=== PATIENT | female | born 1950 | race Caucasian/White ===

== ENCOUNTER 2017-10-07 10:12 | Inpatient (IN) | payer OTHER ==
[~2017-10-07] VITALS: Ht 167.6 cm; Wt 80.5 kg
[2017-10-07] MEDS ORDERED: NALBUPHINE HCL 10 MG/1ml INJECTION IV ONE ×3 (10:45→18:00)
[2017-10-07] MEDS ORDERED: PROMETHAZINE HCL 25 MG/ML 1ML IV ONE ×3 (10:45→18:00)
[2017-10-07 11:26] LABS: Basophils # (auto) 0.1 uL; Basophils % (auto) 0.5 % (0.0-2.0); Eosinophils # (auto) 0.2 uL; Eosinophils % (auto) 1.3 % (0.0-7.0); Hematocrit 40.4 % (36.0-46.0); Hemoglobin 13.2 g/dL (12.2-16.2); Lymphocytes # (auto) 2.3 uL; Lymphocytes % (auto) 18.6 % (10.0-50.0); Mean Corpuscular Hgb Conc. 32.7 g/dL (32.0-36.0); Mean Corpuscular Volume 91.7 fL (80.0-100.0); Monocytes # (auto) 0.6 uL; Monocytes % (auto) 5.3 % (0.0-12.0); Neutrophils # (auto) 9.1 uL; Neutrophils % (auto) 74.3 % (37.0-80.0); Platelet Count (auto) 226 10^3/uL (140-450); Red Cell Distribution Width 15.1 % (11.8-14.3); White Blood Cell 12.2 10^3/uL (4.4-10.8)
[2017-10-07 11:30] LABS: Alanine Aminotransferase 29 U/L (13-56); Albumin 3.7 g/dL (3.4-5.0); Alkaline Phosphatase 78 U/L (45-117); Anion Gap 11 (5-15); Aspartate Aminotransferase 22 U/L (15-37); BUN/Creatinine Ratio 30.9; Bilirubin, Total 0.4 mg/dL (0.2-1.0); Blood Urea Nitrogen 17 mg/dL (7-18); Calcium 9.6 mg/dL (8.5-10.1); Carbon Dioxide 21 mmol/L (21-32); Chloride 106 mmol/L (98-107); GFR African American 142 mL/min; GFR Non-African American 118 mL/min; Glucose 102 mg/dL (74-106); Sodium 138 mmol/L (136-145); Total Protein 8.5 g/dL (6.4-8.2)
[2017-10-07] MEDS ORDERED: NITROGLYCERIN 0.4 MG SL TAB SL PRN (19:15)
[2017-10-07] MEDS ORDERED: MORPHINE SULFATE 4 MG/ML SYR/VIAL IV PRN (19:15)
[2017-10-07] MEDS ORDERED: ONDANSETRON HCL 4 MG/2 ML VIAL IV PRN (19:15)
[2017-10-07 19:36] LABS: Urine Bacteria NONE SEEN /hpf (None Seen); Urine Blood TRACE /uL (Negative); Urine Specific Gravity 1.013 (1.001-1.035); Urine WBC 1 /hpf (0 - 5)
[2017-10-07] MEDS: MORPHINE SULF INJ 2 MG/ML SYRINGE 1ML IV PRN (21:00)
[2017-10-07 21:15] VITALS: BP 103/59
[2017-10-08] MEDS ORDERED: ATEN-60 PO (00:31)
[2017-10-08] MEDS ORDERED: NIFE20CA PO (00:31)
[2017-10-08] MEDS ORDERED: IBUP800T24 PO (00:31)
[2017-10-08] MEDS ORDERED: ALPR0.5T PO (00:31)
[2017-10-08] MEDS ORDERED: ASPI-231 PO (00:31)
[2017-10-08] MEDS: MORPHINE SULF INJ 2 MG/ML SYRINGE 1ML IV PRN ×2 (01:02→05:58)
[2017-10-08] MEDS ORDERED: MORPHINE SULFATE 4 MG/ML SYR/VIAL ONE ×2 (01:07→05:37)
[2017-10-08 05:00] VITALS: BP 133/65
[2017-10-08 06:27] LABS: Basophils # (auto) 0 uL; Basophils % (auto) 0.4 % (0.0-2.0); Eosinophils # (auto) 0.1 uL; Eosinophils % (auto) 0.8 % (0.0-7.0); Hematocrit 33.9 % (36.0-46.0); Hemoglobin 11.3 g/dL (12.2-16.2); Lymphocytes # (auto) 2.1 uL; Lymphocytes % (auto) 17.5 % (10.0-50.0); Mean Corpuscular Hemoglobin 30.6 pg (28.0-32.0); Mean Corpuscular Hgb Conc. 33.3 g/dL (32.0-36.0); Monocytes # (auto) 0.9 uL; Monocytes % (auto) 7.1 % (0.0-12.0); Neutrophils % (auto) 74.2 % (37.0-80.0); Platelet Count (auto) 183 10^3/uL (140-450); Red Blood Cells 3.69 10^6/uL (4.0-5.20); Red Cell Distribution Width 14.9 % (11.8-14.3); White Blood Cell 12.2 10^3/uL (4.4-10.8)
[2017-10-08 06:33] LABS: INR 0.94 (0.9-1.15); Prothrombin Time 10.2 sec (9.37-12.3)
[2017-10-08 06:45] LABS: Potassium 4.1 mmol/L (3.5-5.1)
[2017-10-08] MEDS ORDERED: MORPHINE SULFATE 4 MG/ML SYR/VIAL IV PRN (06:45)
[2017-10-08 06:50] LABS: BUN/Creatinine Ratio 29.2; Calcium 10.1 mg/dL (8.5-10.1)
[2017-10-08 06:52] LABS: Bilirubin, Total 0.5 mg/dL (0.2-1.0); Total Protein 6.8 g/dL (6.4-8.2)
[2017-10-08 09:00] VITALS: BP 118/62
[2017-10-08] MEDS ORDERED: HYDROcodone-ACET 5/325MG TAB PO PRN (09:00)
[2017-10-08] MEDS ORDERED: HYDROcodone-ACET 10/325MG TAB PO ONE (09:45)
[2017-10-08 12:00] VITALS: BP 97/57
[2017-10-08] MEDS ORDERED: NIFEdipine ER 30 MG TAB PO ONE (13:30)
[2017-10-08] MEDS ORDERED: ASPirin 81 mg TAB PO SCH (13:30)
[2017-10-08 15:00] VITALS: BP 125/73
[2017-10-08] MEDS: HYDROcodone-ACET 10/325MG TAB PO PRN ×3 (15:12→23:21)
[2017-10-08 21:19] VITALS: BP 131/72
[2017-10-08 22:49] VITALS: BP 131/72
[2017-10-09] MEDS ORDERED: NIFEdipine ER 30 MG TAB PO SCH (10:00)
== END 2017-10-08 23:58 | DRG 563 ==
LOC: EDBD 10:12 → ER 10:12 → OVERFLOW 10:13 → EAST 21:15
PROVIDERS: ADMIT Internal Medicine; ATTEND Internal Medicine
DX: S42.215A Unspecified nondisplaced fracture of surgical neck of left humerus, initial encounter for closed fracture (principal); S32.512A Fracture of superior rim of left pubis, initial encounter for closed fracture; S32.592A Other specified fracture of left pubis, initial encounter for closed fracture; W01.0XXA Fall on same level from slipping, tripping and stumbling without subsequent striking against object, initial encounter; G47.00 Insomnia, unspecified; I10 Essential (primary) hypertension; Y93.89 Activity, other specified; Y92.22 Religious institution as the place of occurrence of the external cause; Z80.0 Family history of malignant neoplasm of digestive organs; Z80.1 Family history of malignant neoplasm of trachea, bronchus and lung; Z82.3 Family history of stroke; Z82.49 Family history of ischemic heart disease and other diseases of the circulatory system; Z90.710 Acquired absence of both cervix and uterus; Z88.1 Allergy status to other antibiotic agents; Z88.8 Allergy status to other drugs, medicaments and biological substances; Z88.0 Allergy status to penicillin
CPT/HCPCS: 36415; 51702; 71045; 73060; 73502; 73700; 80053; 81001; 84484; 85025; 85610; 93005; 96374; 96375; 96376; 97163; J2405

== ENCOUNTER 2017-10-11 16:21 | Inpatient (IN) | payer OTHER ==
[~2017-10-11] VITALS: Ht 165.1 cm; Wt 84.5 kg
[~2017-10-11 16:21] MED LIST: ALPR0.5T PO; ASPI-231 PO; ATEN-60 PO; IBUP800T24 PO; NIFE20CA PO
[2017-10-11] MEDS ORDERED: SODIUM CHLORIDE 0.9% 500 ML IVB ONE (16:36)
[2017-10-11] MEDS ORDERED: ONDANSETRON HCL 4 MG/2 ML VIAL IV ONE (16:45)
[2017-10-11 17:21] LABS: Basophils # (auto) 0 uL; Basophils % (auto) 0.1 % (0.0-2.0); Eosinophils # (auto) 0 uL; Eosinophils % (auto) 0.1 % (0.0-7.0); Hemoglobin 12.6 g/dL (12.2-16.2); Lymphocytes # (auto) 1.4 uL; Lymphocytes % (auto) 6.1 % (10.0-50.0); Mean Corpuscular Hemoglobin 31.1 pg (28.0-32.0); Mean Corpuscular Hgb Conc. 34.1 g/dL (32.0-36.0); Mean Corpuscular Volume 91.1 fL (80.0-100.0); Monocytes # (auto) 1.5 uL; Monocytes % (auto) 6.8 % (0.0-12.0); Neutrophils # (auto) 19.4 uL; Neutrophils % (auto) 86.9 % (37.0-80.0); Nucleated Red Blood Cells % 0.1 %; Platelet Count (auto) 177 10^3/uL (140-450); Red Blood Cells 4.06 10^6/uL (4.0-5.20); Red Cell Distribution Width 14.2 % (11.8-14.3); White Blood Cell 22.3 10^3/uL (4.4-10.8)
[2017-10-11 19:02] LABS: Urine Bacteria FEW /hpf (None Seen); Urine Blood 1+ /uL (Negative); Urine Specific Gravity 1.011 (1.001-1.035); Urine WBC 97 /hpf (0 - 5)
[2017-10-11 19:12] LABS: Potassium 3.2 mmol/L (3.5-5.1)
[2017-10-11 19:15] LABS: Calcium 18.7 mg/dL (8.5-10.1)
[2017-10-11 19:16] LABS: Albumin 2.7 g/dL (3.4-5.0); Bilirubin, Total 0.9 mg/dL (0.2-1.0); Magnesium 2.5 mg/dL (1.6-2.6); Total Protein 7.2 g/dL (6.4-8.2)
[2017-10-11] MEDS ORDERED: POTASSIUM CHL 20MEQ/100ML 100 ML IV ONE (19:45)
[2017-10-11] MEDS ORDERED: MORPHINE SULFATE 4 MG/ML SYR/VIAL IV PRN (21:00)
[2017-10-11] MEDS ORDERED: D5W/SOD CHL 0.45% 1,000 ML IV ONE (21:00)
[2017-10-11] MEDS ORDERED: ONDANSETRON HCL 4 MG/2 ML VIAL IV PRN (21:00)
[2017-10-11] MEDS ORDERED: NITROGLYCERIN 0.4 MG SL TAB SL PRN (21:00)
[2017-10-11] MEDS ORDERED: CHOL20009 PO (21:09)
[2017-10-11] MEDS ORDERED: CALC667C5 PO (21:09)
[2017-10-11] MEDS ORDERED: HEPARIN DRIP/D5W 100UNITS/ML 250 ML IV SCH (21:13)
[2017-10-11] MEDS ORDERED: HEPARIN SODIUM (PORCINE) 5000 UNITS/ML 1ML VIAL IV ONE (21:15)
[2017-10-11] MEDS: ALPRAZolam 0.5 MG TAB PO SCH (22:00)
[2017-10-11] MEDS ORDERED: HEPARIN SODIUM (PORCINE) 5000 UNITS/ML 1ML VIAL SC SCH (22:00)
[2017-10-11] MEDS: ATORVASTATIN 20 MG TAB PO SCH (22:00)
[2017-10-11] MEDS: METOPROLOL TARTRATE 25 MG TAB PO SCH (22:00)
[2017-10-11] MEDS: DOCUSATE SOD 100 MG CAP PO SCH (22:00)
[2017-10-11 22:03] LABS: Potassium 3.3 mmol/L (3.5-5.1)
[2017-10-11 22:11] LABS: Calcium 19.7 mg/dL (8.5-10.1)
[2017-10-11] MEDS: POTASSIUM CHL 20MEQ/100ML 100 ML IV SCH ×2 (22:30→23:00)
[2017-10-11] MEDS: SODIUM CHLORIDE 0.9% 1,000 ML IV SCH (23:30)
[2017-10-11] MEDS ORDERED: CALCITONIN 200 UNIT/SPRAY NASAL ONE (23:30)
[2017-10-12] MEDS ORDERED: TEMAZEPAM 15 MG CAP PO ONE
[2017-10-12 01:06] LABS: BUN/Creatinine Ratio 41.4; Potassium 3.4 mmol/L (3.5-5.1)
[2017-10-12 01:10] LABS: Calcium 19.5 mg/dL (8.5-10.1)
[2017-10-12] MEDS ORDERED: HEPARIN SODIUM (PORCINE) 5000 UNITS/ML 1ML VIAL ONE ×2 (01:45→09:14)
[2017-10-12] MEDS: LINEZOLID 600MG/300ML 300 ML IV SCH ×3 (01:53→21:30)
[2017-10-12] MEDS: SODIUM CHLORIDE 0.9% 1,000 ML IV SCH ×5 (04:42→23:00)
[2017-10-12 05:36] VITALS: BP 127/58
[2017-10-12] MEDS ORDERED: FUROSEMIDE 20 MG/2 ML VIAL IV SCH (06:00)
[2017-10-12] MEDS ORDERED: HEPARIN SODIUM (PORCINE) 5000 UNITS/ML 1ML VIAL SC SCH (06:00)
[2017-10-12 07:16] LABS: Basophils # (auto) 0 uL; Basophils % (auto) 0.2 % (0.0-2.0); Eosinophils # (auto) 0 uL; Eosinophils % (auto) 0.1 % (0.0-7.0); Hematocrit 34.3 % (36.0-46.0); Hemoglobin 11.5 g/dL (12.2-16.2); Lymphocytes # (auto) 1.5 uL; Mean Corpuscular Hemoglobin 30.5 pg (28.0-32.0); Mean Corpuscular Hgb Conc. 33.5 g/dL (32.0-36.0); Monocytes # (auto) 1.4 uL; Monocytes % (auto) 6.6 % (0.0-12.0); Neutrophils # (auto) 17.8 uL; Neutrophils % (auto) 86.1 % (37.0-80.0); Platelet Count (auto) 158 10^3/uL (140-450); Red Blood Cells 3.77 10^6/uL (4.0-5.20); Red Cell Distribution Width 14.2 % (11.8-14.3); White Blood Cell 20.7 10^3/uL (4.4-10.8)
[2017-10-12 07:30] LABS: INR 0.92 (0.9-1.15)
[2017-10-12 07:48] LABS: BUN/Creatinine Ratio 44.5; Potassium 3.2 mmol/L (3.5-5.1)
[2017-10-12] MEDS ORDERED: ZOLEDRONIC ACID 4 MG in SODIUM CHL 0.9% 100 ML IV ONE (09:00)
[2017-10-12] MEDS: PANTOPRAZOLE 40 MG/10 ML VIAL IV SCH (09:21)
[2017-10-12] MEDS: DOCUSATE SOD 100 MG CAP PO SCH ×2 (09:21→22:00)
[2017-10-12] MEDS: ASPirin-EC 81 mg tab PO SCH (09:21)
[2017-10-12] MEDS: METOPROLOL TARTRATE 25 MG TAB PO SCH ×2 (09:22→22:00)
[2017-10-12] MEDS: CALCITONIN INJECTABLE (200U/ML) 2ML VIAL SC SCH ×2 (09:23→22:00)
[2017-10-12] MEDS: NIFEdipine ER 30 MG TAB PO SCH (09:23)
[2017-10-12] MEDS: ALPRAZolam 0.5 MG TAB PO SCH ×2 (09:23→22:00)
[2017-10-12] MEDS: HEPARIN SODIUM (PORCINE) 5000 UNITS/ML 1ML VIAL SC SCH ×2 (09:24→17:50)
[2017-10-12 12:00] VITALS: BP 140/68
[2017-10-12 12:23] LABS: BUN/Creatinine Ratio 38.8
[2017-10-12 12:33] LABS: Calcium 17.8 mg/dL (8.5-10.1)
[2017-10-12] MEDS: AZTREONAM 1GM INJ 1 GM in D5W 5% 50 ML IV SCH ×2 (13:48→22:00)
[2017-10-12 14:08] LABS: BUN/Creatinine Ratio 43.1; Potassium 3.1 mmol/L (3.5-5.1)
[2017-10-12 14:11] LABS: Calcium 17.6 mg/dL (8.5-10.1)
[2017-10-12 16:00] VITALS: BP 152/82
[2017-10-12 20:00] VITALS: BP 133/84
[2017-10-12] MEDS: ATORVASTATIN 20 MG TAB PO SCH (22:00)
[2017-10-13] VITALS: BP_SYST 124; BP_SYST 154; BP_DIAS 81; BP_DIAS 83
[2017-10-13] MEDS: MORPHINE SULFATE 4 MG/ML SYR/VIAL IV PRN
[2017-10-13 01:05] LABS: BUN/Creatinine Ratio 37.9
[2017-10-13 01:19] LABS: Calcium 17.8 mg/dL (8.5-10.1); Potassium 2.8 mmol/L (3.5-5.1)
[2017-10-13] MEDS ORDERED: POTASSIUM CHL 20MEQ/100ML 300 ML IV ONE (02:06)
[2017-10-13] MEDS: SODIUM CHLORIDE 0.9% 1,000 ML IV SCH ×4 (02:16→14:55)
[2017-10-13] MEDS: HEPARIN SODIUM (PORCINE) 5000 UNITS/ML 1ML VIAL SC SCH ×4 (02:19→22:33)
[2017-10-13] MEDS: POTASSIUM CHL 20MEQ/100ML 100 ML IV SCH ×3 (02:19→05:55)
[2017-10-13 04:00] VITALS: BP 114/66
[2017-10-13 05:44] LABS: Hematocrit 31.4 % (36.0-46.0); Hemoglobin 10.5 g/dL (12.2-16.2); Mean Corpuscular Hemoglobin 30.5 pg (28.0-32.0); Mean Corpuscular Hgb Conc. 33.4 g/dL (32.0-36.0); Mean Corpuscular Volume 91.4 fL (80.0-100.0); Platelet Count (auto) 132 10^3/uL (140-450); Red Blood Cells 3.43 10^6/uL (4.0-5.20); Red Cell Distribution Width 14.1 % (11.8-14.3); White Blood Cell 14.3 10^3/uL (4.4-10.8)
[2017-10-13 05:54] LABS: Basophils % (manual) 0 (0.0-2.0); Blast Cells 0; Eosinophils % (manual) 0 (0-7); Metamyelocytes % 0; Myelocytes % 0; Potassium 3.3 mmol/L (3.5-5.1); Promyelocytes % 0; Reactive Lymphocytes 0
[2017-10-13 06:02] LABS: Calcium 15.3 mg/dL (8.5-10.1)
[2017-10-13] MEDS: AZTREONAM 1GM INJ 1 GM in D5W 5% 50 ML IV SCH ×3 (06:21→22:38)
[2017-10-13 06:39] LABS: Band Neutrophils % (manual) 2; Lymphocytes % (manual) 3 (10.0-50.0); Monocytes % (manual) 3 (0-12)
[2017-10-13 08:00] VITALS: BP 143/68
[2017-10-13] MEDS: PANTOPRAZOLE 40 MG/10 ML VIAL IV SCH (10:41)
[2017-10-13] MEDS: LINEZOLID 600MG/300ML 300 ML IV SCH ×2 (10:42→21:23)
[2017-10-13] MEDS: ASPirin-EC 81 mg tab PO SCH (10:42)
[2017-10-13] MEDS: ALPRAZolam 0.5 MG TAB PO SCH ×2 (10:42→22:26)
[2017-10-13] MEDS: METOPROLOL TARTRATE 25 MG TAB PO SCH ×2 (10:42→22:28)
[2017-10-13] MEDS: DOCUSATE SOD 100 MG CAP PO SCH ×2 (10:42→22:26)
[2017-10-13] MEDS: NIFEdipine ER 30 MG TAB PO SCH (10:43)
[2017-10-13 12:26] LABS: BUN/Creatinine Ratio 41.7; Potassium 3.1 mmol/L (3.5-5.1)
[2017-10-13 12:33] LABS: Calcium 14.5 mg/dL (8.5-10.1)
[2017-10-13] MEDS: CALCITONIN INJECTABLE (200U/ML) 2ML VIAL SC SCH ×2 (12:46→22:33)
[2017-10-13 14:33] LABS: BUN/Creatinine Ratio 44.6
[2017-10-13] MEDS ORDERED: SODIUM CHLORIDE 0.9% 2,000 ML IV ONE (15:45)
[2017-10-13] MEDS ORDERED: FUROSEMIDE 100 MG/10ML VIAL IV ONE (15:45)
[2017-10-13] MEDS ORDERED: POTASSIUM CHLORIDE 60 MEQ, LIDOCAINE 1% (LOCAL ANESTH.) 6 ML in SODIUM CHL 0.9% 500 ML IV ONE (15:45)
[2017-10-13 16:00] VITALS: BP 154/92
[2017-10-13 20:00] VITALS: BP 147/71
[2017-10-13 22:00] VITALS: BP 128/74
[2017-10-13] MEDS: ATORVASTATIN 20 MG TAB PO SCH (22:26)
[2017-10-13 23:39] LABS: BUN/Creatinine Ratio 40.5; Potassium 3.1 mmol/L (3.5-5.1)
[2017-10-13 23:44] LABS: Calcium 13.6 mg/dL (8.5-10.1)
[2017-10-14] VITALS: BP 143/84
[2017-10-14 04:00] VITALS: BP 165/74
[2017-10-14] MEDS: SODIUM CHLORIDE 0.9% 1,000 ML IV SCH ×5 (05:00→21:30)
[2017-10-14 05:26] LABS: Hematocrit 30.4 % (36.0-46.0); Hemoglobin 10.2 g/dL (12.2-16.2); Mean Corpuscular Hemoglobin 30.6 pg (28.0-32.0); Mean Corpuscular Hgb Conc. 33.6 g/dL (32.0-36.0); Mean Corpuscular Volume 91.1 fL (80.0-100.0); Platelet Count (auto) 134 10^3/uL (140-450); Red Blood Cells 3.33 10^6/uL (4.0-5.20); Red Cell Distribution Width 14.2 % (11.8-14.3); White Blood Cell 14.6 10^3/uL (4.4-10.8)
[2017-10-14 05:33] LABS: Basophils % (manual) 0 (0.0-2.0); Blast Cells 0; Eosinophils % (manual) 0 (0-7); Metamyelocytes % 0; Myelocytes % 0; Promyelocytes % 0; Reactive Lymphocytes 0
[2017-10-14 05:45] LABS: BUN/Creatinine Ratio 43.3; Calcium 12.7 mg/dL (8.5-10.1)
[2017-10-14 05:49] LABS: Potassium 2.7 mmol/L (3.5-5.1)
[2017-10-14] MEDS: AZTREONAM 1GM INJ 1 GM in D5W 5% 50 ML IV SCH ×3 (05:53→22:43)
[2017-10-14] MEDS: HEPARIN SODIUM (PORCINE) 5000 UNITS/ML 1ML VIAL SC SCH ×3 (06:39→22:34)
[2017-10-14] MEDS ORDERED: POTASSIUM CHLORIDE 60 MEQ, LIDOCAINE 1% (LOCAL ANESTH.) 6 ML in SODIUM CHL 0.9% 500 ML IV ONE (07:00)
[2017-10-14 07:02] LABS: Band Neutrophils % (manual) 2; Lymphocytes % (manual) 2 (10.0-50.0); Monocytes % (manual) 1 (0-12)
[2017-10-14 08:00] VITALS: BP 163/76
[2017-10-14] MEDS: LINEZOLID 600MG/300ML 300 ML IV SCH ×2 (10:32→22:35)
[2017-10-14] MEDS: ASPirin-EC 81 mg tab PO SCH (10:36)
[2017-10-14] MEDS: PANTOPRAZOLE 40 MG/10 ML VIAL IV SCH (10:36)
[2017-10-14] MEDS: CALCITONIN 200 UNIT/SPRAY NASAL SCH ×2 (10:36→22:43)
[2017-10-14] MEDS: NIFEdipine ER 30 MG TAB PO SCH (10:36)
[2017-10-14] MEDS: DOCUSATE SOD 100 MG CAP PO SCH ×2 (10:36→22:43)
[2017-10-14] MEDS: ALPRAZolam 0.5 MG TAB PO SCH ×2 (10:36→22:43)
[2017-10-14] MEDS: METOPROLOL TARTRATE 25 MG TAB PO SCH ×2 (10:37→23:03)
[2017-10-14 12:00] VITALS: BP 148/82
[2017-10-14 12:19] LABS: Albumin 1.7 g/dL (3.4-5.0); BUN/Creatinine Ratio 47.1; Bilirubin, Total 0.7 mg/dL (0.2-1.0); Calcium 11.9 mg/dL (8.5-10.1); Potassium 3.2 mmol/L (3.5-5.1); Total Protein 5.3 g/dL (6.4-8.2)
[2017-10-14 16:00] VITALS: BP 150/93
[2017-10-14] MEDS: POTASSIUM CHL 20MEQ/100ML 100 ML IV SCH ×3 (16:12→20:49)
[2017-10-14 19:57] VITALS: BP 133/93
[2017-10-14] MEDS: ATORVASTATIN 20 MG TAB PO SCH (22:43)
[2017-10-15] VITALS (7 sets, daily range): BP systolic 142–158; BP diastolic 76–93
[2017-10-15] MEDS: SODIUM CHLORIDE 0.9% 1,000 ML IV SCH ×5 (02:07→21:41)
[2017-10-15 05:56] LABS: Hematocrit 28.2 % (36.0-46.0); Hemoglobin 9.4 g/dL (12.2-16.2); Mean Corpuscular Hemoglobin 30.3 pg (28.0-32.0); Mean Corpuscular Hgb Conc. 33.2 g/dL (32.0-36.0); Mean Corpuscular Volume 91.3 fL (80.0-100.0); Platelet Count (auto) 144 10^3/uL (140-450); Red Blood Cells 3.09 10^6/uL (4.0-5.20); Red Cell Distribution Width 14.4 % (11.8-14.3); White Blood Cell 16.8 10^3/uL (4.4-10.8)
[2017-10-15 06:12] LABS: Basophils % (manual) 0 (0.0-2.0); Myelocytes % 0; Promyelocytes % 0
[2017-10-15 06:13] LABS: Blast Cells 0; Reactive Lymphocytes 0
[2017-10-15 06:23] LABS: Albumin 1.8 g/dL (3.4-5.0); BUN/Creatinine Ratio 41.5; Bilirubin, Total 0.7 mg/dL (0.2-1.0); Calcium 11.4 mg/dL (8.5-10.1); Potassium 3.5 mmol/L (3.5-5.1); Total Protein 5.5 g/dL (6.4-8.2)
[2017-10-15 06:31] LABS: Band Neutrophils % (manual) 4; Eosinophils % (manual) 1 (0-7); Lymphocytes % (manual) 7 (10.0-50.0); Metamyelocytes % 1; Monocytes % (manual) 9 (0-12)
[2017-10-15] MEDS: AZTREONAM 1GM INJ 1 GM in D5W 5% 50 ML IV SCH ×3 (06:32→22:07)
[2017-10-15] MEDS: HEPARIN SODIUM (PORCINE) 5000 UNITS/ML 1ML VIAL SC SCH ×3 (06:38→22:05)
[2017-10-15] MEDS ORDERED: IOHEXOL 300 MG/ML 100ML BOTTLE IJ ONE (08:41)
[2017-10-15] MEDS: LINEZOLID 600MG/300ML 300 ML IV SCH ×2 (08:50→21:00)
[2017-10-15 09:34] LABS: Hepatitis B Surface Antibody Negative
[2017-10-15 09:44] LABS: Hepatitis B Surface Antigen Negative (Negative)
[2017-10-15] MEDS: CALCITONIN 200 UNIT/SPRAY NASAL SCH ×2 (10:00→22:07)
[2017-10-15 10:13] LABS: Hepatitis C Antibody Negative (Negative)
[2017-10-15] MEDS: PANTOPRAZOLE 40 MG/10 ML VIAL IV SCH (10:44)
[2017-10-15] MEDS: NIFEdipine ER 30 MG TAB PO SCH (10:45)
[2017-10-15] MEDS: METOPROLOL TARTRATE 25 MG TAB PO SCH ×2 (10:45→21:00)
[2017-10-15] MEDS: ALPRAZolam 0.5 MG TAB PO SCH ×2 (10:46→22:04)
[2017-10-15] MEDS: DOCUSATE SOD 100 MG CAP PO SCH ×2 (10:46→22:04)
[2017-10-15] MEDS: ASPirin-EC 81 mg tab PO SCH (10:46)
[2017-10-15] MEDS: HYDROcodone-ACET 5/325MG TAB PO PRN (19:30)
[2017-10-15] MEDS: ATORVASTATIN 20 MG TAB PO SCH (22:05)
[2017-10-16] MEDS: SODIUM CHLORIDE 0.9% 1,000 ML IV SCH ×4 (03:30→17:32)
[2017-10-16 04:00] VITALS: BP 158/79
[2017-10-16] MEDS: HYDROcodone-ACET 5/325MG TAB PO PRN ×3 (04:22→21:35)
[2017-10-16] MEDS: HEPARIN SODIUM (PORCINE) 5000 UNITS/ML 1ML VIAL SC SCH ×3 (06:00→21:27)
[2017-10-16] MEDS: AZTREONAM 1GM INJ 1 GM in D5W 5% 50 ML IV SCH ×2 (06:00→13:55)
[2017-10-16 06:33] LABS: Hematocrit 25.2 % (36.0-46.0); Hemoglobin 8.5 g/dL (12.2-16.2); Mean Corpuscular Hemoglobin 30.4 pg (28.0-32.0); Mean Corpuscular Hgb Conc. 33.7 g/dL (32.0-36.0); Mean Corpuscular Volume 90.3 fL (80.0-100.0); Platelet Count (auto) 153 10^3/uL (140-450); Red Blood Cells 2.79 10^6/uL (4.0-5.20); Red Cell Distribution Width 14.4 % (11.8-14.3); White Blood Cell 15.9 10^3/uL (4.4-10.8)
[2017-10-16 06:47] LABS: Band Neutrophils % (manual) 0
[2017-10-16 06:48] LABS: Basophils % (manual) 0 (0.0-2.0); Blast Cells 0; Metamyelocytes % 0; Myelocytes % 0; Promyelocytes % 0; Reactive Lymphocytes 0
[2017-10-16 06:58] LABS: BUN/Creatinine Ratio 39.5; Calcium 10.3 mg/dL (8.5-10.1); Potassium 3.1 mmol/L (3.5-5.1)
[2017-10-16 08:00] VITALS: BP 137/103
[2017-10-16] MEDS: MORPHINE SULFATE 4 MG/ML SYR/VIAL IV PRN (08:11)
[2017-10-16] MEDS: CALCITONIN 200 UNIT/SPRAY NASAL SCH (10:00)
[2017-10-16] MEDS: PANTOPRAZOLE 40 MG/10 ML VIAL IV SCH (10:23)
[2017-10-16] MEDS: LINEZOLID 600MG/300ML 300 ML IV SCH ×2 (10:23→21:26)
[2017-10-16] MEDS: METOPROLOL TARTRATE 25 MG TAB PO SCH ×2 (10:25→21:28)
[2017-10-16] MEDS: ALPRAZolam 0.5 MG TAB PO SCH ×2 (10:26→21:28)
[2017-10-16] MEDS: NIFEdipine ER 30 MG TAB PO SCH (10:26)
[2017-10-16] MEDS: DOCUSATE SOD 100 MG CAP PO SCH ×2 (10:27→22:00)
[2017-10-16] MEDS: ASPirin-EC 81 mg tab PO SCH (10:27)
[2017-10-16 11:34] LABS: Eosinophils % (manual) 1 (0-7); Lymphocytes % (manual) 12 (10.0-50.0); Monocytes % (manual) 9 (0-12)
[2017-10-16 12:00] VITALS: BP 129/86
[2017-10-16 19:46] VITALS: BP 125/74
[2017-10-16] MEDS: ATORVASTATIN 20 MG TAB PO SCH (21:28)
[2017-10-16] MEDS ORDERED: CALCITONIN 200 UNIT/SPRAY NASAL SCH (22:00)
[2017-10-17] VITALS (13 sets, daily range): BP systolic 109–156; BP diastolic 54–85
[2017-10-17] MEDS: SODIUM CHLORIDE 0.9% 1,000 ML IV SCH ×3 (00:01→10:00)
[2017-10-17] MEDS: AZTREONAM 1GM INJ 1 GM in D5W 5% 50 ML IV SCH ×4 (05:25→14:16)
[2017-10-17] MEDS: HYDROcodone-ACET 5/325MG TAB PO PRN ×2 (05:34→14:23)
[2017-10-17] MEDS: HEPARIN SODIUM (PORCINE) 5000 UNITS/ML 1ML VIAL SC SCH ×3 (05:36→21:45)
[2017-10-17 05:50] LABS: Hematocrit 28.7 % (36.0-46.0); Hemoglobin 9.7 g/dL (12.2-16.2); Mean Corpuscular Hemoglobin 30.5 pg (28.0-32.0); Mean Corpuscular Hgb Conc. 33.7 g/dL (32.0-36.0); Mean Corpuscular Volume 90.6 fL (80.0-100.0); Platelet Count (auto) 202 10^3/uL (140-450); Red Blood Cells 3.17 10^6/uL (4.0-5.20); Red Cell Distribution Width 14.6 % (11.8-14.3); White Blood Cell 19.2 10^3/uL (4.4-10.8)
[2017-10-17 05:59] LABS: Basophils % (manual) 0 (0.0-2.0); Blast Cells 0; Myelocytes % 0; Promyelocytes % 0; Reactive Lymphocytes 0
[2017-10-17 06:19] LABS: BUN/Creatinine Ratio 26.3; Calcium 9.7 mg/dL (8.5-10.1)
[2017-10-17 06:26] LABS: Potassium 2.9 mmol/L (3.5-5.1)
[2017-10-17 06:56] LABS: Band Neutrophils % (manual) 1; Eosinophils % (manual) 2 (0-7); Lymphocytes % (manual) 7 (10.0-50.0); Metamyelocytes % 2; Monocytes % (manual) 7 (0-12)
[2017-10-17] MEDS ORDERED: IOHEXOL 300 MG/ML 100ML BOTTLE IJ ONE ×2 (07:57→13:34)
[2017-10-17] MEDS ORDERED: POTASSIUM CHL 20 Meq TABLET PO ONE (08:30)
[2017-10-17] MEDS: LINEZOLID 600MG/300ML 300 ML IV SCH ×2 (08:45→21:20)
[2017-10-17] MEDS: DOCUSATE SOD 100 MG CAP PO SCH ×2 (09:47→22:00)
[2017-10-17] MEDS: PANTOPRAZOLE 40 MG/10 ML VIAL IV SCH (09:47)
[2017-10-17] MEDS: ASPirin-EC 81 mg tab PO SCH (09:47)
[2017-10-17] MEDS: METOPROLOL TARTRATE 25 MG TAB PO SCH ×2 (09:48→21:44)
[2017-10-17] MEDS: NIFEdipine ER 30 MG TAB PO SCH (09:48)
[2017-10-17] MEDS: ACETAMINOPHEN 325 MG TAB PO PRN ×3 (09:49→21:46)
[2017-10-17] MEDS: ALPRAZolam 0.5 MG TAB PO SCH ×2 (09:49→21:44)
[2017-10-17] MEDS ORDERED: VITA400T4 PO (12:51)
[2017-10-17] MEDS ORDERED: DIPH25CA66 PO (12:51)
[2017-10-17] MEDS ORDERED: LACTCAP35 OR (12:51)
[2017-10-17 18:18] LABS: BUN/Creatinine Ratio 25.8; Potassium 3.9 mmol/L (3.5-5.1)
[2017-10-17] MEDS: ATORVASTATIN 20 MG TAB PO SCH (21:42)
[2017-10-17] MEDS: metroNIDAZOLE 500MG/100ML 100 ML IV SCH (22:51)
[2017-10-18] VITALS: BP 122/56
[2017-10-18] MEDS: HYDROcodone-ACET 5/325MG TAB PO PRN ×4 (00:46→22:38)
[2017-10-18] MEDS: AZTREONAM 1GM INJ 1 GM in D5W 5% 50 ML IV SCH ×4 (00:46→21:36)
[2017-10-18] MEDS: SODIUM CHLORIDE 0.9% 1,000 ML IV SCH ×3 (03:04→15:56)
[2017-10-18 04:00] VITALS: BP 123/87
[2017-10-18] MEDS: metroNIDAZOLE 500MG/100ML 100 ML IV SCH ×3 (05:07→22:00)
[2017-10-18 05:47] LABS: Hematocrit 28.9 % (36.0-46.0); Hemoglobin 9.6 g/dL (12.2-16.2); Mean Corpuscular Hemoglobin 30.4 pg (28.0-32.0); Mean Corpuscular Hgb Conc. 33.1 g/dL (32.0-36.0); Mean Corpuscular Volume 91.8 fL (80.0-100.0); Platelet Count (auto) 233 10^3/uL (140-450); Red Blood Cells 3.15 10^6/uL (4.0-5.20); Red Cell Distribution Width 15.8 % (11.8-14.3); White Blood Cell 18.3 10^3/uL (4.4-10.8)
[2017-10-18] MEDS: HEPARIN SODIUM (PORCINE) 5000 UNITS/ML 1ML VIAL SC SCH ×2 (05:55→13:40)
[2017-10-18 06:16] LABS: Calcium 8.9 mg/dL (8.5-10.1); Potassium 4.4 mmol/L (3.5-5.1)
[2017-10-18 06:18] LABS: BUN/Creatinine Ratio 22.9
[2017-10-18] MEDS: MORPHINE SULFATE 4 MG/ML SYR/VIAL IV PRN ×2 (06:27→15:49)
[2017-10-18 06:33] LABS: Basophils % (manual) 0 (0.0-2.0); Blast Cells 0; Metamyelocytes % 0; Myelocytes % 0; Promyelocytes % 0; Reactive Lymphocytes 0
[2017-10-18 08:00] VITALS: BP 162/77
[2017-10-18 08:14] LABS: Band Neutrophils % (manual) 3; Eosinophils % (manual) 6 (0-7); Lymphocytes % (manual) 5 (10.0-50.0); Monocytes % (manual) 4 (0-12)
[2017-10-18 08:15] LABS: INR 1.01 (0.9-1.15)
[2017-10-18] MEDS: LINEZOLID 600MG/300ML 300 ML IV SCH ×2 (08:48→20:49)
[2017-10-18] MEDS: PANTOPRAZOLE 40 MG/10 ML VIAL IV SCH (10:00)
[2017-10-18] MEDS: ALPRAZolam 0.5 MG TAB PO SCH ×2 (10:01→22:00)
[2017-10-18] MEDS: METOPROLOL TARTRATE 25 MG TAB PO SCH ×2 (10:01→22:00)
[2017-10-18] MEDS: ASPirin-EC 81 mg tab PO SCH (10:01)
[2017-10-18] MEDS: DOCUSATE SOD 100 MG CAP PO SCH ×2 (10:01→22:00)
[2017-10-18] MEDS: NIFEdipine ER 30 MG TAB PO SCH (10:01)
[2017-10-18 12:00] VITALS: BP 130/80
[2017-10-18 15:58] VITALS: BP 124/76
[2017-10-18 20:00] VITALS: BP_SYST 128; BP_SYST 149; BP_DIAS 64; BP_DIAS 76
[2017-10-18] MEDS: ACETAMINOPHEN 325 MG TAB PO PRN ×2 (21:13→22:38)
[2017-10-18] MEDS: ATORVASTATIN 20 MG TAB PO SCH (22:00)
[2017-10-19] MEDS: SODIUM CHLORIDE 0.9% 1,000 ML IV SCH (02:00)
[2017-10-19 04:00] VITALS: BP 125/69
[2017-10-19] MEDS: AZTREONAM 1GM INJ 1 GM in D5W 5% 50 ML IV SCH ×2 (05:13→15:30)
[2017-10-19] MEDS: metroNIDAZOLE 500MG/100ML 100 ML IV SCH ×3 (05:14→21:08)
[2017-10-19 06:26] LABS: Hematocrit 25.7 % (36.0-46.0); Hemoglobin 8.5 g/dL (12.2-16.2); Mean Corpuscular Hemoglobin 30.3 pg (28.0-32.0); Mean Corpuscular Volume 91.8 fL (80.0-100.0); Platelet Count (auto) 239 10^3/uL (140-450); Red Cell Distribution Width 15.5 % (11.8-14.3); White Blood Cell 20.8 10^3/uL (4.4-10.8)
[2017-10-19 06:28] LABS: INR 0.99 (0.9-1.15); Partial Thromboplastin Time 38.2 sec (22.64-33.71); Prothrombin Time 10.8 sec (9.37-12.3)
[2017-10-19 06:45] LABS: Albumin 1.3 g/dL (3.4-5.0); Bilirubin, Direct 0.2 mg/dL (0-0.2); Bilirubin, Total 0.4 mg/dL (0.2-1.0); Calcium 8.1 mg/dL (8.5-10.1); Magnesium 1.6 mg/dL (1.6-2.6); Potassium 3.7 mmol/L (3.5-5.1); Total Protein 5.3 g/dL (6.4-8.2)
[2017-10-19 06:50] LABS: Basophils % (manual) 0 (0.0-2.0); Blast Cells 0; Eosinophils % (manual) 0 (0-7); Metamyelocytes % 0; Myelocytes % 0; Promyelocytes % 0; Reactive Lymphocytes 0
[2017-10-19 08:00] VITALS: BP 140/73
[2017-10-19] MEDS: LINEZOLID 600MG/300ML 300 ML IV SCH ×2 (09:30→20:06)
[2017-10-19 09:46] LABS: Band Neutrophils % (manual) 6; Lymphocytes % (manual) 12 (10.0-50.0); Monocytes % (manual) 7 (0-12)
[2017-10-19] MEDS: DOCUSATE SOD 100 MG CAP PO SCH ×2 (10:00→21:34)
[2017-10-19] MEDS: METOPROLOL TARTRATE 25 MG TAB PO SCH ×2 (10:16→21:34)
[2017-10-19] MEDS: NIFEdipine ER 30 MG TAB PO SCH (10:19)
[2017-10-19] MEDS: ALPRAZolam 0.5 MG TAB PO SCH ×2 (10:19→21:09)
[2017-10-19] MEDS: ASPirin-EC 81 mg tab PO SCH (10:19)
[2017-10-19] MEDS: HYDROcodone-ACET 5/325MG TAB PO PRN (10:20)
[2017-10-19] MEDS: PANTOPRAZOLE 40 MG/10 ML VIAL IV SCH (10:21)
[2017-10-19] MEDS: SOD CHL 0.9%/ KCL 20MEQ 1,000 ML IV SCH (10:22)
[2017-10-19 12:00] VITALS: BP 120/67
[2017-10-19 12:32] LABS: Hematocrit 22.7 % (36.0-46.0); Mean Corpuscular Hemoglobin 29.9 pg (28.0-32.0); Red Blood Cells 2.49 10^6/uL (4.0-5.20)
[2017-10-19 12:34] LABS: Hemoglobin 7.5 g/dL (12.2-16.2); Mean Corpuscular Hgb Conc. 32.9 g/dL (32.0-36.0); Mean Corpuscular Volume 90.8 fL (80.0-100.0); Platelet Count (auto) 236 10^3/uL (140-450); Red Cell Distribution Width 15.7 % (11.8-14.3); White Blood Cell 19.6 10^3/uL (4.4-10.8)
[2017-10-19 12:49] LABS: Basophils % (manual) 0 (0.0-2.0); Blast Cells 0; Metamyelocytes % 0; Monocytes % (manual) 0 (0-12); Myelocytes % 0; Promyelocytes % 0; Reactive Lymphocytes 0
[2017-10-19 12:53] LABS: Urine Bacteria FEW /hpf (None Seen); Urine Blood 2+ /uL (Negative); Urine Hyaline Cast FEW /lpf (0 - 2); Urine Specific Gravity 1.016 (1.001-1.035); Urine WBC 36 /hpf (0 - 5)
[2017-10-19 13:33] LABS: Band Neutrophils % (manual) 14; Eosinophils % (manual) 1 (0-7); Lymphocytes % (manual) 5 (10.0-50.0)
[2017-10-19] MEDS ORDERED: GADOPENTETATE DIMEGLUMINE (10MMOL/20 ML) VIAL IV ONE (13:53)
[2017-10-19] MEDS: MORPHINE SULF 15mg ER tab PO SCH ×2 (14:01→21:09)
[2017-10-19 16:00] VITALS: BP 126/78
[2017-10-19 17:57] VITALS: BP 152/89
[2017-10-19] MEDS: ATORVASTATIN 20 MG TAB PO SCH (21:08)
[2017-10-19 21:44] VITALS: BP 152/83
[2017-10-19] MEDS ORDERED: SULFAMETHOX W/TRIMETH(800/160MG) DS TAB PO SCH (22:00)
[2017-10-20] VITALS (16 sets, daily range): BP systolic 102–144; BP diastolic 41–90
[2017-10-20] MEDS: AZTREONAM 1GM INJ 1 GM in D5W 5% 50 ML IV SCH ×3 (00:01→16:00)
[2017-10-20] MEDS: SOD CHL 0.9%/ KCL 20MEQ 1,000 ML IV SCH ×2 (04:56→05:30)
[2017-10-20] MEDS: metroNIDAZOLE 500MG/100ML 100 ML IV SCH ×3 (04:57→20:49)
[2017-10-20 06:46] LABS: Hemoglobin 8.1 g/dL (12.2-16.2); Mean Corpuscular Volume 91.6 fL (80.0-100.0)
[2017-10-20 06:51] LABS: Hematocrit 24.6 % (36.0-46.0); Mean Corpuscular Hemoglobin 30.1 pg (28.0-32.0); Mean Corpuscular Hgb Conc. 32.9 g/dL (32.0-36.0); Platelet Count (auto) 267 10^3/uL (140-450); Red Blood Cells 2.69 10^6/uL (4.0-5.20); White Blood Cell 18.2 10^3/uL (4.4-10.8)
[2017-10-20 07:00] LABS: Basophils % (manual) 0 (0.0-2.0)
[2017-10-20 07:01] LABS: Blast Cells 0; Metamyelocytes % 0; Myelocytes % 0; Promyelocytes % 0; Reactive Lymphocytes 0
[2017-10-20 07:07] LABS: Calcium 8.1 mg/dL (8.5-10.1); Potassium 4.1 mmol/L (3.5-5.1)
[2017-10-20 07:08] LABS: BUN/Creatinine Ratio 18.4
[2017-10-20] MEDS: HYDROcodone-ACET 5/325MG TAB PO PRN ×2 (08:00→16:54)
[2017-10-20] MEDS: PANTOPRAZOLE 40 MG/10 ML VIAL IV SCH (09:32)
[2017-10-20] MEDS: VANCOMYCIN 750 MG in D5W 5% 250 ML IV SCH ×2 (09:32→22:00)
[2017-10-20] MEDS: NIFEdipine ER 30 MG TAB PO SCH (09:33)
[2017-10-20] MEDS: MORPHINE SULF 15mg ER tab PO SCH ×2 (09:33→21:44)
[2017-10-20] MEDS: ASPirin-EC 81 mg tab PO SCH (09:34)
[2017-10-20] MEDS: ALPRAZolam 0.5 MG TAB PO SCH ×2 (09:34→21:45)
[2017-10-20] MEDS: DOCUSATE SOD 100 MG CAP PO SCH ×2 (09:35→21:44)
[2017-10-20] MEDS: METOPROLOL TARTRATE 25 MG TAB PO SCH ×2 (09:35→21:46)
[2017-10-20] MEDS ORDERED: VANCOMYCIN PER PHARMACY 0 MG IV SCH (10:00)
[2017-10-20 10:04] LABS: White Blood Cell 17.3 10^3/uL (4.4-10.8)
[2017-10-20 10:05] LABS: Hematocrit 20.6 % (36.0-46.0); Mean Corpuscular Hemoglobin 30.2 pg (28.0-32.0); Mean Corpuscular Hgb Conc. 32.9 g/dL (32.0-36.0); Platelet Count (auto) 242 10^3/uL (140-450); Red Blood Cells 2.24 10^6/uL (4.0-5.20); Red Cell Distribution Width 15.8 % (11.8-14.3)
[2017-10-20 10:12] LABS: Hemoglobin 6.8 g/dL (12.2-16.2)
[2017-10-20 10:14] LABS: Basophils % (manual) 0 (0.0-2.0); Blast Cells 0; Metamyelocytes % 0; Myelocytes % 0; Promyelocytes % 0; Reactive Lymphocytes 0
[2017-10-20 10:27] LABS: BUN/Creatinine Ratio 26.8; Calcium 7.1 mg/dL (8.5-10.1); Potassium 3.7 mmol/L (3.5-5.1)
[2017-10-20 14:39] LABS: Eosinophils % (manual) 2 (0-7); Lymphocytes % (manual) 7 (10.0-50.0); Monocytes % (manual) 4 (0-12)
[2017-10-20 14:40] LABS: Band Neutrophils % (manual) 5
[2017-10-20 14:57] LABS: Band Neutrophils % (manual) 3; Eosinophils % (manual) 5 (0-7); Lymphocytes % (manual) 5 (10.0-50.0); Monocytes % (manual) 4 (0-12)
[2017-10-20] MEDS: ACETAMINOPHEN 325 MG TAB PO PRN (21:45)
[2017-10-20] MEDS: ATORVASTATIN 20 MG TAB PO SCH (21:45)
[2017-10-20] MEDS: MORPHINE SULFATE 4 MG/ML SYR/VIAL IV PRN (22:55)
[2017-10-21] MEDS: AZTREONAM 1GM INJ 1 GM in D5W 5% 50 ML IV SCH ×3 (00:24→16:44)
[2017-10-21] MEDS: metroNIDAZOLE 500MG/100ML 100 ML IV SCH ×3 (04:49→21:06)
[2017-10-21 05:05] VITALS: BP 131/59
[2017-10-21] MEDS: MORPHINE SULFATE 4 MG/ML SYR/VIAL IV PRN ×2 (05:09→16:44)
[2017-10-21 06:25] LABS: Hematocrit 28.5 % (36.0-46.0); Mean Corpuscular Hemoglobin 31.8 pg (28.0-32.0); Mean Corpuscular Hgb Conc. 35.1 g/dL (32.0-36.0); Mean Corpuscular Volume 90.6 fL (80.0-100.0); Platelet Count (auto) 268 10^3/uL (140-450); Red Blood Cells 3.15 10^6/uL (4.0-5.20); Red Cell Distribution Width 15.3 % (11.8-14.3); White Blood Cell 14.4 10^3/uL (4.4-10.8)
[2017-10-21 06:29] LABS: Band Neutrophils % (manual) 0; Basophils % (manual) 0 (0.0-2.0); Blast Cells 0; Metamyelocytes % 0; Myelocytes % 0; Promyelocytes % 0; Reactive Lymphocytes 0
[2017-10-21 06:42] LABS: BUN/Creatinine Ratio 23.3; Calcium 7.5 mg/dL (8.5-10.1); Potassium 3.9 mmol/L (3.5-5.1)
[2017-10-21 06:50] LABS: Eosinophils % (manual) 4 (0-7); Lymphocytes % (manual) 5 (10.0-50.0); Monocytes % (manual) 6 (0-12)
[2017-10-21 09:07] VITALS: BP 137/66
[2017-10-21] MEDS: MORPHINE SULF 15mg ER tab PO SCH (10:10)
[2017-10-21] MEDS: ALPRAZolam 0.5 MG TAB PO SCH ×2 (10:11→21:30)
[2017-10-21] MEDS: DOCUSATE SOD 100 MG CAP PO SCH ×2 (10:11→21:32)
[2017-10-21] MEDS: PANTOPRAZOLE 40 MG/10 ML VIAL IV SCH (10:12)
[2017-10-21] MEDS: NIFEdipine ER 30 MG TAB PO SCH (10:12)
[2017-10-21] MEDS: METOPROLOL TARTRATE 25 MG TAB PO SCH ×2 (10:12→21:31)
[2017-10-21] MEDS: ASPirin-EC 81 mg tab PO SCH (10:12)
[2017-10-21] MEDS: VANCOMYCIN 750 MG in D5W 5% 250 ML IV SCH ×2 (10:13→22:00)
[2017-10-21 13:00] VITALS: BP 135/73
[2017-10-21] MEDS: HYDROcodone-ACET 5/325MG TAB PO PRN (14:05)
[2017-10-21 17:00] VITALS: BP 121/67
[2017-10-21] MEDS: ATORVASTATIN 20 MG TAB PO SCH (21:31)
[2017-10-21] MEDS: MORPHINE SULF 30 mg ER tab PO SCH (21:32)
[2017-10-21 22:00] VITALS: BP 149/72
[2017-10-22] MEDS: metroNIDAZOLE 500MG/100ML 100 ML IV SCH ×2 (05:00→15:45)
[2017-10-22 05:24] VITALS: BP 124/76
[2017-10-22 08:08] LABS: Basophils # (auto) 0.1 uL; Basophils % (auto) 0.5 % (0.0-2.0); Eosinophils # (auto) 0.6 uL; Eosinophils % (auto) 4.5 % (0.0-7.0); Hematocrit 28.7 % (36.0-46.0); Hemoglobin 9.5 g/dL (12.2-16.2); Lymphocytes # (auto) 0.8 uL; Lymphocytes % (auto) 5.7 % (10.0-50.0); Mean Corpuscular Hemoglobin 30.1 pg (28.0-32.0); Mean Corpuscular Volume 91.3 fL (80.0-100.0); Monocytes # (auto) 0.9 uL; Monocytes % (auto) 6.4 % (0.0-12.0); Neutrophils # (auto) 11.3 uL; Neutrophils % (auto) 82.9 % (37.0-80.0); Platelet Count (auto) 275 10^3/uL (140-450); Red Blood Cells 3.15 10^6/uL (4.0-5.20); Red Cell Distribution Width 15.4 % (11.8-14.3); White Blood Cell 13.7 10^3/uL (4.4-10.8)
[2017-10-22 08:34] LABS: BUN/Creatinine Ratio 25.6; Calcium 7.4 mg/dL (8.5-10.1); Potassium 3.8 mmol/L (3.5-5.1)
[2017-10-22] MEDS: AZTREONAM 1GM INJ 1 GM in D5W 5% 50 ML IV SCH ×4 (09:07→17:24)
[2017-10-22] MEDS: PANTOPRAZOLE 40 MG/10 ML VIAL IV SCH (09:15)
[2017-10-22] MEDS: METOPROLOL TARTRATE 25 MG TAB PO SCH (09:16)
[2017-10-22] MEDS: ASPirin-EC 81 mg tab PO SCH (09:16)
[2017-10-22] MEDS: NIFEdipine ER 30 MG TAB PO SCH (09:16)
[2017-10-22] MEDS: MORPHINE SULF 30 mg ER tab PO SCH (09:17)
[2017-10-22] MEDS: ALPRAZolam 0.5 MG TAB PO SCH (09:17)
[2017-10-22] MEDS: DOCUSATE SOD 100 MG CAP PO SCH (09:17)
[2017-10-22 09:52] VITALS: BP 121/53
[2017-10-22] MEDS ORDERED: ACE325T PO (10:45)
[2017-10-22] MEDS ORDERED: HYDR-4683 PO (10:45)
[2017-10-22] MEDS ORDERED: MET25T PO (10:45)
[2017-10-22] MEDS ORDERED: METR500T PO (10:45)
[2017-10-22] MEDS ORDERED: DOXY100C2 PO (10:45)
[2017-10-22] MEDS ORDERED: DOCU100C8 PO (10:45)
[2017-10-22] MEDS ORDERED: ALBU0.084 IN (10:45)
[2017-10-22] MEDS ORDERED: ATOR20TA50 PO (10:45)
[2017-10-22] MEDS ORDERED: NIF30XLT PO (10:45)
[2017-10-22] MEDS ORDERED: ALPR-140 PO (10:45)
[2017-10-22] MEDS ORDERED: [UNRECOGNIZED DRUG - CODE] IV (10:45)
[2017-10-22] MEDS ORDERED: ENO40SY SC (10:45)
[2017-10-22] MEDS: VANCOMYCIN 750 MG in D5W 5% 250 ML IV SCH (10:59)
[2017-10-22 13:11] VITALS: BP 135/70
[2017-10-22] MEDS ORDERED: DOXYCYCLINE 100 MG TAB/CAP PO SCH (14:15)
[2017-10-22 14:47] VITALS: BP 135/70
[2017-10-22] MEDS: MORPHINE SULFATE 4 MG/ML SYR/VIAL IV PRN (15:52)
== END 2017-10-22 18:00 | DRG 698 ==
LOC: EDBD 16:21 → ER 16:22 → TELE 16:23 → DOU IN ICU 10-12 02:13 → EAST 10-19 17:53 → TELE-EAST 10-19 18:22
PROVIDERS: ADMIT Hospitalist; ATTEND Hospitalist
PROC: 5A09357 Assistance with Respiratory Ventilation, Less than 24 Consecutive Hours, Continuous Positive Airway Pressure (ICD-10-PCS; 2017-10-18)
PROC: 30233N1 Transfusion of Nonautologous Red Blood Cells into Peripheral Vein, Percutaneous Approach (ICD-10-PCS; principal; 2017-10-20)
DX: T83.9XXA Unspecified complication of genitourinary prosthetic device, implant and graft, initial encounter (principal); I21.4 Non-ST elevation (NSTEMI) myocardial infarction; A41.9 Sepsis, unspecified organism; N17.9 Acute kidney failure, unspecified; G93.41 Metabolic encephalopathy; J18.9 Pneumonia, unspecified organism; N18.3 Chronic kidney disease, stage 3 (moderate); E87.1 Hypo-osmolality and hyponatremia; N39.0 Urinary tract infection, site not specified; S42.215A Unspecified nondisplaced fracture of surgical neck of left humerus, initial encounter for closed fracture; S32.9XXA Fracture of unspecified parts of lumbosacral spine and pelvis, initial encounter for closed fracture; E86.0 Dehydration; B95.7 Other staphylococcus as the cause of diseases classified elsewhere; D64.9 Anemia, unspecified; E78.5 Hyperlipidemia, unspecified; E83.52 Hypercalcemia; E87.6 Hypokalemia; I12.9 Hypertensive chronic kidney disease with stage 1 through stage 4 chronic kidney disease, or unspecified chronic kidney disease; I70.0 Atherosclerosis of aorta; I70.8 Atherosclerosis of other arteries; K57.30 Diverticulosis of large intestine without perforation or abscess without bleeding; K59.00 Constipation, unspecified; M19.90 Unspecified osteoarthritis, unspecified site; N21.0 Calculus in bladder; Y84.8 Other medical procedures as the cause of abnormal reaction of the patient, or of later complication, without mention of misadventure at the time of the procedure; W18.39XA Other fall on same level, initial encounter; Y93.89 Activity, other specified; Y95 Nosocomial condition; Z80.0 Family history of malignant neoplasm of digestive organs; Z80.1 Family history of malignant neoplasm of trachea, bronchus and lung; Z82.3 Family history of stroke; Z82.49 Family history of ischemic heart disease and other diseases of the circulatory system; Y92.89 Other specified places as the place of occurrence of the external cause; Z85.038 Personal history of other malignant neoplasm of large intestine; Z85.118 Personal history of other malignant neoplasm of bronchus and lung; Z86.73 Personal history of transient ischemic attack (TIA), and cerebral infarction without residual deficits; Z88.9 Allergy status to unspecified drugs, medicaments and biological substances; Z90.710 Acquired absence of both cervix and uterus; Z88.1 Allergy status to other antibiotic agents; Z88.0 Allergy status to penicillin; Z79.82 Long term (current) use of aspirin; Z74.01 Bed confinement status
CPT/HCPCS: 36415; 36600; 70553; 71045; 71260; 74176; 74177; 78306; 80048; 80053; 80076; 80202; 81001; 82150; 82306; 82330; 82805; 83605; 83615; 83690; 83735; 83970; 84100; 84146; 84155; 84156; 84165; 84166; 84484; 85007; 85025; 85027; 85610; 85730; 86706; 86803; 86850; 86900; 86901; 86920; 87040; 87070; 87081; 87086; 87088; 87186; 87205; 87340; 93005; 93306; 93970; 96361; 96365; 96372; 96375; 97163; 99291; C9113; J2001; J2405; J3480; J3489; J3490; J7060